=== PATIENT | female | born 1980 | race African-American/Black ===

== ENCOUNTER 2017-01-02 19:14 | Emergency (ER) | payer SELFPAY ==
[2017-01-02] MEDS ORDERED: traMADol HCl 50 MG TAB ONE (19:41)
[2017-01-02] MEDS ORDERED: Cephalexin 500 MG CAP ONE (19:42)
[2017-01-02] MEDS ORDERED: Ibuprofen 800 MG TAB ONE (19:42)
[2017-01-02] MEDS ORDERED: Ibuprofen 200 MG TAB ONE (19:46)
== END 2017-01-02 20:35 | disposition home or self-care (01) ==
LOC: NAV ERS 19:14
DX: L08.9 Local infection of the skin and subcutaneous tissue, unspecified (principal)
CPT/HCPCS: 99283

== ENCOUNTER 2017-07-15 21:59 | Emergency (ER) | payer SELFPAY ==
[2017-07-15] MEDS ORDERED: Acetaminophen 500 MG TAB ONE (22:12)
[2017-07-15] MEDS ORDERED: Ibuprofen 800 MG TAB ONE (22:12)
[2017-07-15] MEDS ORDERED: Oseltamivir 75 MG CAP ONE (22:17)
== END 2017-07-15 23:50 | disposition home or self-care (01) ==
LOC: NAV ERS 21:59
DX: J11.1 Influenza due to unidentified influenza virus with other respiratory manifestations (principal); E11.9 Type 2 diabetes mellitus without complications; I10 Essential (primary) hypertension; Z79.84 Long term (current) use of oral hypoglycemic drugs
CPT/HCPCS: 99283

== ENCOUNTER 2019-12-02 18:33 | Emergency (ER) | payer SELFPAY ==
[2019-12-02] MEDS ORDERED: Lidocaine 1% w/Epinephrine 1:100K 30 ML VIAL ONE (19:16)
== END 2019-12-02 19:40 | disposition home or self-care (01) ==
LOC: NAV ERS 18:33
DX: L02.411 Cutaneous abscess of right axilla (principal); E66.01 Morbid (severe) obesity due to excess calories; E66.9 Obesity, unspecified; I10 Essential (primary) hypertension; E11.9 Type 2 diabetes mellitus without complications; Z87.891 Personal history of nicotine dependence; Z79.4 Long term (current) use of insulin
CPT/HCPCS: 10060; J2001